=== PATIENT | female | born 1995 | race Caucasian/White ===

== ENCOUNTER 2017-09-17 20:00 | Emergency (ER) | payer OTHER ==
--- NOTE | 2017-09-17 21:14 | EDPHY ---
H & P Stated Complaint: POS D-DIMER, FEVERS TO 101, CHEST PAIN LAST WEEK Time Seen by Provider: 09/17/17 20:53 HPI/ROS: CHIEF COMPLAINT: Dyspnea, elevated D-dimer HISTORY OF PRESENT ILLNESS: The patient is referred to the emergency department for evaluation of dyspnea and a slightly elevated D-dimer. The patient reportedly has been having weeks of intermittent chest pain, upper back pain and low back pain. The patient denies acute cough, she denies asymmetric calf pain or swelling. The patient denies prior history of PE or DVT. The patient denies history of asthma. She denies symptoms of her worsened with exertion. The patient denies any prolonged immobilization or other risk factors for a PE or DVT. REVIEW OF SYSTEMS: A comprehensive 10 point review of systems is otherwise negative aside from elements mentioned in the history of present illness. Source: Patient, Family - Personal History LMP (Females 10-55): Now Current Tetanus/Diphtheria Vaccine: Unsure - Medical/Surgical History Hx Asthma: No Hx Chronic Respiratory Disease: No Hx Diabetes: No Hx Cardiac Disease: No Hx Renal Disease: No Hx Cirrhosis: No Hx Alcoholism: No Hx HIV/AIDS: No Hx Splenectomy or Spleen Trauma: No Other PMH: L pinkie surgery - Social History Smoking Status: Never smoked - Physical Exam Exam: General Appearance: Alert, no distress Eyes: Pupils equal and round no pallor or injection ENT, Mouth: Mucous membranes moist Respiratory: There are no retractions, lungs are clear to auscultation Cardiovascular: Regular rate and rhythm Gastrointestinal: Abdomen is soft and nontender, no masses, bowel sounds normal Neurological: A&O, normal motor function, normal sensory exam, normal cranial nerves Skin: Warm and dry, no rashes Musculoskeletal: Neck is supple nontender Extremities: symmetrical, full range of motion Constitutional: Initial Vital Signs Temperature (C) 36.6 C 09/17/17 20:37 Heart Rate 78 09/17/17 20:37 Respiratory Rate 18 09/17/17 20:37 Blood Pressure 129/84 H 09/17/17 20:37 O2 Sat (%) 100 09/17/17 20:37 O2 Delivery Mode Room Air Allergies/Adverse Reactions: No Known Allergies Allergy (Unverified 09/17/17 20:36) Home Medications: Medication Instructions Recorded Nexplanon 09/17/17 Medical Decision Making - Diagnostics Imaging Results: CT pulmonary angiogram: Images reviewed by myself and discussed with radiologist Dr. Chapincito Atkinson. Negative for pulmonary embolism or other intrathoracic/pulmonary abnormality. ED Course/Re-evaluation: The patient presents to the ED for evaluation of months of mild intermittent dyspnea back pain and slightly elevated outpatient D-dimer test. The patient was noted to be hemodynamically stable. She has no clinical evidence of a DVT. The patient was taken for CT pulmonary angiogram which demonstrates no evidence of a PE, pneumothorax, pneumonia or other obvious intrathoracic abnormality. The patient has been reassured of the findings. The patient has been encouraged to continue to work with her primary care provider for evaluation and management of her symptoms. Differential Diagnosis: Differential diagnosis considered includes pulmonary embolism, pneumonia, pneumothorax, anxiety, arrhythmia - Data Points Laboratory Results: 09/17/17 21:14 POC Hgb 16.3 gm/dL gm/dL (12.6-16.3) POC Hct 48 % H % (38-47) POC Sodium 143 mEq/L mEq/L (135-145) POC Potassium 3.5 mEq/L mEq/L (3.3-5.0) POC Chloride 106 mEq/L mEq/L (97-110) POC BUN 14 mg/dL mg/dL (7-23) POC Creatinine 0.6 mg/dL mg/dL (0.6-1.0) POC Glucose 99 mg/dL mg/dL (70-100) Point of Care Test Results: 09/17/17 21:14 POC Sodium 143 POC Potassium 3.5 POC Chloride 106 POC BUN 14 POC Creatinine 0.6 POC Glucose 99 Departure - Departure Disposition: Home, Routine, Self-Care Clinical Impression: Dyspnea Condition: Good Instructions: Dyspnea (ED) Additional Instructions: 1. Your CT scan demonstrates no evidence of a blood clot, pneumonia or obvious pulmonary problem. 2. I recommend continuing to work with your primary care provider for evaluation of your symptoms. 3. Please return to the ED for markedly worsening symptoms or other concerns. Referrals: Mallory Davis MD [Primary Care Provider] - As per Instructions
[2017-09-17] MEDS ORDERED: IOPAMIDOL (ISOVUE 370) 100 ML BTL IV ONE (21:34)
[2017-09-17 23:19] VITALS: BP 104/63
== END 2017-09-17 23:20 | disposition home or self-care (01) ==
DX: R06.00 Dyspnea, unspecified (principal)
CPT/HCPCS: 82947-QW; Q9967